=== PATIENT | female | born 1965 | race Caucasian/White ===

== ENCOUNTER 2019-05-03 13:09 | Day surgery (SDC) | payer OTHER ==
[~2019-05-03] VITALS: Ht 162.6 cm; Wt 73.1 kg
[~2019-05-03 13:09] MED LIST: DHEA 10 MG TAB1 EACH PO; PROG100 PO; TESTOSTERONE IMPLANT
== END 2019-05-03 15:47 | disposition home or self-care (01) ==
LOC: ORSCSDS 13:09
PROVIDERS: Student in an Organized Health Care Education/Training Program
PROC: 0DBP8ZX Excision of Rectum, Via Natural or Artificial Opening Endoscopic, Diagnostic (ICD-10-PCS; principal; 2019-05-03 14:30)
DX: Z12.11 Encounter for screening for malignant neoplasm of colon (principal); K62.1 Rectal polyp; K57.30 Diverticulosis of large intestine without perforation or abscess without bleeding; K64.8 Other hemorrhoids; K21.9 Gastro-esophageal reflux disease without esophagitis; Z87.891 Personal history of nicotine dependence; Z79.899 Other long term (current) drug therapy
CPT/HCPCS: 88305; J2704; J7120